=== PATIENT | male | born 1960 | race African-American/Black ===

== ENCOUNTER 2024-08-01 13:52 | Emergency (ER) | payer OTHER ==
[~2024-08-01] VITALS: Ht 182.9 cm; Wt 87.0 kg
[2024-08-01 13:57] VITALS: O2SAT 100
[2024-08-01] MEDS: LEVETIRACETAM 1000MG PREMIX 100 ML IV ONE (14:38)
[2024-08-01 14:42] LABS: BASOPHILS % 0.6 % (0.0-2.0); DIFFERENTIAL COMMENT 0; EOSINOPHILS % 0.1 % (0.0-5.0); HEMATOCRIT. 42.5 % (42.0-52.0); HEMOGLOBIN. 14.4 g/dL (14.0-18.0); LYMPHOCYTES % 21.4 % (20.0-50.0); MEAN CORPUSCULAR HGB CONC 33.9 g/dL (31.0-37.0); MEAN CORPUSCULAR VOLUME 94.5 fL (80.0-94.0); MONOCYTES % 3.8 % (2.0-8.0); NEUTROPHILS % 74.1 % (40.0-76.0); PLATELET 375 x1000/uL (130-400); RED BLOOD CELL COUNT 4.49 mill/uL (4.7-6.1); RED CELL DISTRIBUTION WIDTH 12.7 % (11.6-14.6); WHITE BLOOD COUNT 7.5 x1000/uL (4.5-11.0)
[2024-08-01 14:50] LABS: CHLORIDE 105 mEq/L (98-107); POTASSIUM 4.2 mEq/L (3.5-5.1); SODIUM 138 mEq/L (136-145)
[2024-08-01 14:51] LABS: CALCIUM 9.4 mg/dL (8.7-10.4); CARBON DIOXIDE 24 mEq/L (21-32)
[2024-08-01 14:56] LABS: GLUCOSE 114 mg/dL (70-105); UREA NITROGEN BLOOD 11 mg/dL (9-23)
[2024-08-01 14:58] LABS: ALANINE AMINOTRANSFERASE 20 IU/L (10-49); ALBUMIN 4.2 g/dL (3.2-4.8); ASPARTATE AMINOTRANSFERASE 23 IU/L (<34); BILIRUBIN TOTAL 1.1 mg/dL (0.1-1.0); PHOSPHORUS 1.9 mg/dL (2.5-4.9); PROTEIN TOTAL 7.3 g/dL (6.0-8.3); TROPONIN I HIGH SENSITIVITY 6 ng/L (3.0-53)
[2024-08-01 14:59] LABS: ETHANOL BLOOD < 10 mg/dL (<10)
[2024-08-01 16:07] VITALS: TEMP 36.6
[2024-08-01] MEDS: POTASSIUM-SODIUM PHOSPHATE POWDER PACKET PO ONE (18:32)
[2024-08-01] MEDS: PANTOPRAZOLE SODIUM 40 MG/VIAL IV ONE (19:56)
[2024-08-01 20:52] LABS: PARTIAL THROMBOPLASTIN TIME 29.3 sec (23.4-31.0); PROTHROMBIN TIME 10.6 sec (9.6-11.0)
[2024-08-01] MEDS ORDERED: LEVETIRACETAM 1000MG PREMIX 100 ML IV SCH (21:00)
[2024-08-01] MEDS ORDERED: KEPP500 MT (21:37)
[2024-08-01 22:46] VITALS: BP 134/65; PULSE 65; RESP 14; O2SAT 98
[2024-08-01] MEDS ORDERED: IOHEXOL-300 100 ML BOTTLE ONE (23:21)
== END 2024-08-01 23:01 | disposition home or self-care (01) ==
LOC: ER 13:52 → EDBEDREQ 15:13 → EDBEDREQTM 19:43 → EDBEDREQ 19:43 → ER 23:01
DX: R56.9 Unspecified convulsions (principal); M25.512 Pain in left shoulder; K92.0 Hematemesis; Z79.899 Other long term (current) drug therapy
CPT/HCPCS: 80053; 80320; 83735; 84100; 85025; 85610; 85730; 84484; 36415; 73030; 70450; 74177; 93005; 96367; 96365; 96366; 99285; Q9967; J1953; J2470; Z7610; 96361; G0480